=== PATIENT | female | born 1960 | race American Indian/Alaskan Native ===

== ENCOUNTER 2020-06-09 14:01 | Emergency (ER) | payer OTHER ==
--- NOTE | 2020-06-09 14:31 | Emergency Department Report ---
ED General Adult HPI - General Chief complaint: BP Check / Ring removal req Stated complaint: SYNCOPE Time Seen by Provider: 06/09/20 14:12 Source: patient, EMS Mode of arrival: Stretcher Limitations: No Limitations - History of Present Illness Initial comments: Patient presents to the emergency department with a chief complaint of bradycardia. Per EMS upon picking the patient up her heart rate was 16 and she was given 0.5 mg atropine. Patient states this morning she took Coreg which she was told she no longer needed after a 5-day stay in this hospital. 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 Patient states that this morning she was going to get a second cold testing done which became weak and pulled over at a park in the [facility] because she was not feeling well. Patient states at that time bystander call 911. Patient denies chest pain, shortness breath, or headache. -: Sudden Severity scale (0 -10): 0 Consistency: now resolved Improves with: none Worsens with: none Associated Symptoms: denies other symptoms Treatments Prior to Arrival: none - Related Data Home Medications Medication Instructions Recorded Confirmed Last Taken AtorvaSTATin 40 mg PO QDAY 05/18/20 05/18/20 Unknown carvediloL [Coreg] 25 mg PO QDAY 05/18/20 05/18/20 Unknown hydroCHLOROthiazide 25 mg PO QDAY 05/18/20 05/18/20 Unknown Previous Rx's Medication Instructions Recorded Last Taken Type Apixaban [Eliquis] 2.5 mg PO Q12HR 30 Days #60 tablet 05/23/20 Unknown Rx Ascorbic Acid [Vitamin C] 500 mg PO BID 30 Days #60 tablet 05/23/20 Unknown Rx Aspirin EC 81 mg PO QDAY 30 Days #30 05/23/20 Unknown Rx Aspirin EC [Halfprin EC] 81 mg PO QDAY 30 Days #30 tablet 05/23/20 Unknown Rx AtorvaSTATin [Lipitor] 40 mg PO DAILY 30 Days #30 tablet 05/23/20 Unknown Rx Zinc Sulfate 220 mg PO QDAY 30 Days #30 capsule 05/23/20 Unknown Rx dexAMETHasone [Decadron] 6 mg PO DAILY 7 Days #7 tablet 05/23/20 Unknown Rx guaiFENesin [Robitussin] 200 mg PO Q4H PRN 7 Days #120 05/23/20 Unknown Rx oral.liqd hydroCHLOROthiazide [HCTZ] 25 mg PO QDAY 30 Days #30 tablet 05/23/20 Unknown Rx lisinopriL [Zestril TAB] 40 mg PO QDAY 30 Days #30 tablet 05/23/20 Unknown Rx Allergies Allergy/AdvReac Type Severity Reaction Status Date / Time No Known Allergies Allergy Verified 05/17/20 19:50 ED Review of Systems ROS: Stated complaint: SYNCOPE Other details as noted in HPI Comment: All other systems reviewed and negative Constitutional: denies: chills, fever Eyes: denies: eye pain, eye discharge, vision change ENT: denies: ear pain, throat pain Respiratory: denies: cough, shortness of breath, wheezing Cardiovascular: denies: chest pain, palpitations Endocrine: no symptoms reported Gastrointestinal: denies: abdominal pain, nausea, diarrhea Genitourinary: denies: urgency, dysuria, discharge Musculoskeletal: denies: back pain, joint swelling, arthralgia Skin: denies: rash, lesions Neurological: denies: headache, weakness, paresthesias Psychiatric: denies: anxiety, depression Hematological/Lymphatic: denies: easy bleeding, easy bruising ED Past Medical Hx - Past Medical History Hx Heart Attack/AMI: Yes Additional medical history: high cholestrol - Surgical History Hx Coronary Stent: Yes (x1) - Social History Smoking Status: Never Smoker - Medications Home Medications: Home Medications Medication Instructions Recorded Confirmed Last Taken Type AtorvaSTATin 40 mg PO QDAY 05/18/20 05/18/20 Unknown History carvediloL [Coreg] 25 mg PO QDAY 05/18/20 05/18/20 Unknown History hydroCHLOROthiazide 25 mg PO QDAY 05/18/20 05/18/20 Unknown History Apixaban [Eliquis] 2.5 mg PO Q12HR 30 Days #60 tablet 05/23/20 Unknown Rx Ascorbic Acid [Vitamin C] 500 mg PO BID 30 Days #60 tablet 05/23/20 Unknown Rx Aspirin EC 81 mg PO QDAY 30 Days #30 05/23/20 Unknown Rx Aspirin EC [Halfprin EC] 81 mg PO QDAY 30 Days #30 tablet 05/23/20 Unknown Rx AtorvaSTATin [Lipitor] 40 mg PO DAILY 30 Days #30 tablet 05/23/20 Unknown Rx Zinc Sulfate 220 mg PO QDAY 30 Days #30 capsule 05/23/20 Unknown Rx dexAMETHasone [Decadron] 6 mg PO DAILY 7 Days #7 tablet 05/23/20 Unknown Rx guaiFENesin [Robitussin] 200 mg PO Q4H PRN 7 Days #120 05/23/20 Unknown Rx oral.liqd hydroCHLOROthiazide [HCTZ] 25 mg PO QDAY 30 Days #30 tablet 05/23/20 Unknown Rx lisinopriL [Zestril TAB] 40 mg PO QDAY 30 Days #30 tablet 05/23/20 Unknown Rx ED Physical Exam - General Limitations: No Limitations General appearance: alert, in no apparent distress - Head Head exam: Present: atraumatic, normocephalic - Eye Eye exam: Present: normal appearance - ENT ENT exam: Present: mucous membranes moist - Neck Neck exam: Present: normal inspection - Respiratory Respiratory exam: Present: normal lung sounds bilaterally. Absent: respiratory distress - Cardiovascular Cardiovascular Exam: Present: regular rate (63), normal rhythm. Absent: systolic murmur, diastolic murmur, rubs, gallop - GI/Abdominal GI/Abdominal exam: Present: soft, normal bowel sounds. Absent: distended, tenderness - Extremities Exam Extremities exam: Present: normal inspection - Back Exam Back exam: Present: normal inspection - Neurological Exam Neurological exam: Present: alert, oriented X3, CN II-XII intact. Absent: motor sensory deficit - Psychiatric Psychiatric exam: Present: normal affect, normal mood - Skin Skin exam: Present: warm, dry, intact, normal color. Absent: rash ED Course Vital Signs 06/09/20 06/09/20 06/09/20 14:22 15:29 16:50 Temperature 98.1 F Pulse Rate 60 67 Respiratory 12 12 Rate Blood Pressure 94/55 92/51 119/55 [Left] O2 Sat by Pulse 97 100 Oximetry ED Medical Decision Making - Lab Data Result diagrams: 06/09/20 15:27 06/09/20 15:27 Lab Results 06/09/20 06/09/20 06/09/20 Range/Units 15:27 15:27 15:27 WBC 5.5 (4.5-11.0) K/mm3 RBC 4.71 (3.65-5.03) M/mm3 Hgb 12.7 (10.1-14.3) gm/dl Hct 39.8 (30.3-42.9) % MCV 85 (79-97) fl MCH 27 L (28-32) pg MCHC 32 (30-34) % RDW 15.7 H (13.2-15.2) % Plt Count 156 (140-440) K/mm3 Lymph % (Auto) 24.9 (13.4-35.0) % [place] % (Auto) 7.8 H (0.0-7.3) % Eos % (Auto) 0.9 (0.0-4.3) % Baso % (Auto) 1.2 (0.0-1.8) % Lymph # 1.4 (1.2-5.4) K/mm3 [place] # 0.4 (0.0-0.8) K/mm3 Eos # 0.0 (0.0-0.4) K/mm3 Baso # 0.1 (0.0-0.1) K/mm3 Seg Neutrophils % 65.2 (40.0-70.0) % Seg Neutrophils # 3.6 (1.8-7.7) K/mm3 PT 12.5 (12.2-14.9) Sec. INR 0.92 (0.87-1.13) APTT 24.3 (24.2-36.6) Sec. Sodium 138 (137-145) mmol/L Potassium 3.6 (3.6-5.0) mmol/L Chloride 103.5 (98-107) mmol/L Carbon Dioxide 24 (22-30) mmol/L Anion Gap 14 mmol/L BUN 11 (7-17) mg/dL Creatinine 1.1 (0.6-1.2) mg/dL Estimated GFR > 60 ml/min BUN/Creatinine Ratio 10 % Glucose 284 H (65-100) mg/dL Calcium 9.8 (8.4-10.2) mg/dL Phosphorus 2.60 (2.5-4.5) mg/dL Magnesium 2.00 (1.7-2.3) mg/dL Total Bilirubin 0.40 (0.1-1.2) mg/dL AST 11 (5-40) units/L ALT 15 (7-56) units/L Alkaline Phosphatase 117 (35-129) units/L Troponin T < 0.010 (0.00-0.029) ng/mL NT-Pro-B Natriuret Pep 24.55 (0-900) pg/mL Total Protein 6.2 L (6.3-8.2) g/dL Albumin 3.6 L (3.9-5) g/dL Albumin/Globulin Ratio 1.4 % - EKG Data -: EKG Interpreted by Me EKG shows normal: sinus rhythm Rate: bradycardia - Radiology Data Radiology results: report reviewed - Medical Decision Making Patient's heart rate remained around 65 during her ED stay Patient received 2 L of fluid and blood pressure increased to approximately 119/50 Admission was offered to the patient for overnight observation and she politely declined stating she would rather go home. Patient instructed not to take the Coreg as she had been previously told Critical care attestation.: If time is entered above; I have spent that time in minutes in the direct care of this critically ill patient, excluding procedure time. ED Disposition Clinical Impression: Bradycardia, Misuse of prescription only drugs, Hypotension Disposition: DC- TO HOME OR SELFCARE Is pt being admited?: No Does the pt Need Aspirin: No Condition: Stable Instructions: Bradycardia (ED) Additional Instructions: Please do not take the Coreg as you have been previously instructed prior to leaving to the hospital on your last admission Please return if you become lightheaded, dizzy, or began to have chest pain. Referrals: ANDREW QUIROZ [Other] - 3-5 Days EMILY RAM MD [Staff Physician] - 3-5 Days Time of Disposition: 17:06
--- NOTE | 2020-06-09 14:50 | XRay Report ---
CHEST 1 VIEW 06/09/2020 2:37 PM INDICATION / CLINICAL INFORMATION: bradycardia. COMPARISON: 05/17/2020 FINDINGS: SUPPORT DEVICES: None. HEART / MEDIASTINUM: No significant abnormality. LUNGS / PLEURA: No significant pulmonary or pleural abnormality. No pneumothorax. ADDITIONAL FINDINGS: No significant additional findings. IMPRESSION: 1. No acute findings. Signer Name: Shakir Hernandez MD Signed: 06/09/2020 2:45 PM Workstation Name: [id number]
[2020-06-09] MEDS ORDERED: SODIUM CHLORIDE 0.9% 1000 ML 1,000 ML ONE (15:23)
[2020-06-09 15:52] LABS: Basophils # (Auto) 0.1 K/mm3 (0.0-0.1); Basophils % (Auto) 1.2 % (0.0-1.8); Eosinophils % (Auto) 0.9 % (0.0-4.3); Hematocrit 39.8 % (30.3-42.9); Hemoglobin 12.7 gm/dl (10.1-14.3); Lymphocytes # (Auto) 1.4 K/mm3 (1.2-5.4); Lymphocytes % (Auto) 24.9 % (13.4-35.0); Mean Corpuscular HGB Conc 32 % (30-34); Mean Corpuscular Volume 85 fl (79-97); Monocytes # (Auto) 0.4 K/mm3 (0.0-0.8); Monocytes % (Auto) 7.8 % (0.0-7.3); Platelet Count 156 K/mm3 (140-440); Red Blood Count 4.71 M/mm3 (3.65-5.03); Red Cell Distribution Width 15.7 % (13.2-15.2)
[2020-06-09 16:03] LABS: INR 0.92 (0.87-1.13)
[2020-06-09 16:04] LABS: Partial Thromboplastin Time 24.3 Sec. (24.2-36.6)
[2020-06-09 16:09] LABS: Alanine Aminotransferase 15 units/L (7-56); Albumin 3.6 g/dL (3.9-5); BUN/Creatinine Ratio 10; Blood Urea Nitrogen 11 mg/dL (7-17); Calcium 9.8 mg/dL (8.4-10.2); Hemolysis Index 7
[2020-06-09 18:11] VITALS: BP 165/80
== END 2020-06-09 18:12 | disposition home or self-care (01) ==
LOC: ED 14:01
DX: R00.1 Bradycardia, unspecified (principal); I95.9 Hypotension, unspecified; F19.90 Other psychoactive substance use, unspecified, uncomplicated; I25.2 Old myocardial infarction; Z98.890 Other specified postprocedural states; Z79.899 Other long term (current) drug therapy
CPT/HCPCS: 36415; 71045; 80053; 83735; 83880; 84100; 84484; 85025; 85610; 85730; 93005; 99284; J7030